=== PATIENT | male | born 1955 | race Caucasian/White ===

== ENCOUNTER 2020-03-26 08:40 | Outpatient (CLI) | payer OTHER, SELFPAY ==
--- NOTE | 2020-03-26 08:47 | USCV_ITS ---
Edmundo Malloy Age: 64 Gender: M : 1955 Exam Date: 03/26/2020 08:55 Ordering Phys: Patricio Stanton DO Technologist: Barron Staton Exam Location: [facility] [place] Indication: MURMUR BP: 130 / 75 HR: 64 Rhythm: Sinus Technical Quality: Good MEASUREMENTS (Male / Female) Normal Values 2D ECHO LV Diastolic Diameter PLAX 4.2 cm 4.2 - 5.9 / 3.9 - 5.3 cm LV Systolic Diameter PLAX 3.5 cm IVS Diastolic Thickness 1.8 cm 0.6 - 1.0 / 0.6 - 0.9 cm IVS Systolic Thickness 2.4 cm LVPW Diastolic Thickness 1.7 cm 0.6 - 1.0 / 0.6 - 0.9 cm LVPW Systolic Thickness 1.4 cm LVOT Diameter 2.4 cm LV Ejection Fraction 2D Teich 33.1 % LV Ejection Fraction MOD 2C 68.9 % LV Ejection Fraction 2C AL 69.8 % LA Diameter 5.8 cm LA Width 4.2 cm LA Height 4.5 cm RA Width 4.5 cm RA Height 4.7 cm M-MODE LV Diastolic Diameter MM 5.3 cm 4.2 - 5.9 / 3.9 - 5.3 cm LV Systolic Diameter MM 3.7 cm LV Ejection Fraction MM Teich 57.5 % IVS Diastolic Thickness MM 1.8 cm 0.6 - 1.0 / 0.6 - 0.9 cm IVS Systolic Thickness MM 1.8 cm LVPW Diastolic Thickness MM 1.4 cm 0.6 - 1.0 / 0.6 - 0.9 cm LVPW Systolic Thickness MM 1.9 cm RV Diastolic Diameter MM 2.3 cm Aortic Annulus Diameter 4.3 cm LA Ao Ratio MM 1.3 MV E Point Septal Separation 0.9 cm DOPPLER AV Peak Velocity 161.0 cm/s LVOT Peak Velocity 132.0 cm/s AV Area Cont Eq vti 3.2 cm squared AV Area Cont Eq pk 3.7 cm squared MV Area PHT 2.9 cm squared Mitral E to A Ratio 0.6 MV E' Velocity 62.0 cm/s TR Peak Velocity 252.0 cm/s TR Peak Gradient 25.4 mmHg Right Atrial Pressure 3.0 mmHg Pulmonary Artery Systolic Pressu 28.4 mmHg FINDINGS Left Ventricle Normal left ventricular cavity size. Increased left ventricular wall thickness. Mild concentric left ventricular hypertrophy. Normal left ventricular systolic function. Left ventricular ejection fraction is estimated at 70 %. No regional wall motion abnormalities. Grade I diastolic dysfunction (abnormal relaxation filling pattern). Right Ventricle Normal right ventricular size and systolic function. Right ventricular systolic pressure 28.4 mmHg. Right Atrium Right atrium not well visualized. Right atrial pressure estimated at 3 mmHg. Left Atrium Moderately increased left atrial size. Mitral Valve Mild mitral annular calcification. No mitral valve stenosis. Trace to mild mitral valve regurgitation. Aortic Valve Mildly thickened trileaflet aortic valve. No aortic valve stenosis. Mild aortic valve regurgitation. Tricuspid Valve Structurally normal tricuspid valve. Trace to mild tricuspid valve regurgitation. Pulmonic Valve Structurally normal pulmonic valve. No pulmonary valve stenosis. Trace pulmonary valve regurgitation. Pericardium No pericardial effusion. Aorta Moderately dilated ascending aorta measured at 43 mm . CONCLUSIONS 1. Normal left ventricular cavity size. Mild concentric left ventricular hypertrophy. Normal left ventricular systolic function. Left ventricular ejection fraction is estimated at 70 %. No regional wall motion abnormalities. Grade I diastolic dysfunction (abnormal relaxation filling pattern). 2. Normal right ventricular size and systolic function. 3. Moderately increased left atrial size. 4. Pulmonary artery pressure estimated at 28 mmHg. 5. Mild aortic valve regurgitation. 6. Moderately dilated ascending aorta measured at 43 mm . 7. No prior similar studies to compare. Deya Babb MD (Electronically Signed) Final Date: 26 Mar 2020 16:09 S
--- NOTE | 2020-03-26 08:49 | USCV_ITS ---
Edmundo Malloy Age: 64 Gender: M : 1955 Exam Date: 03/26/2020 09:12 Ordering Phys: Patricio Stanton DO Technologist: Barron Staton [place] [facility] [place]: SCREENING HISTORY: Diameter (cm) AP x Transverse x Length Velocity (cm/s) Waveform Prox Aorta: 3.09 x 3.08 x 41.40 Triphasic Mid Aorta: 2.03 x 2.68 x 38.10 Triphasic Distal Aorta: 1.56 x 2.39 x 39.70 Triphasic Right Iliac Prox: 1.49 x 1.93 x 37.10 Left Iliac Prox: 1.45 x 2.43 x 31.70 Triphasic Stent Prox Landing x x Aneurysmal Sac Max x x Lt Lat Sac Dim Rt Lat Sac Dim Stent Dist Landing x x Right Iliac Stent x x Left Iliac Stent x x Right Renal Art Left Renal Art FINDINGS: CONCLUSIONS Moderate arteriovascular disease within the abdominal aorta. No evidence of abdominal aortic or bilateral iliac aneurysm. Natanael Dawson MD (Electronically Signed) Final Date: 26 Mar 2020 13:36 S
== END 2020-03-26 08:41 | disposition home or self-care (01) ==
LOC: RAD 08:42
PROVIDERS: PCP Emergency Medicine Emergency Medical Services; Visit Provider Emergency Medicine Emergency Medical Services
DX: Z13.89 Encounter for screening for other disorder (principal); R01.1 Cardiac murmur, unspecified; I51.7 Cardiomegaly; I35.1 Nonrheumatic aortic (valve) insufficiency
CPT/HCPCS: 76706; 93306

== ENCOUNTER 2021-01-21 06:49 | Outpatient (CLI) | payer OTHER, SELFPAY ==
--- NOTE | 2021-01-21 | USCV_ITS ---
dEmundo Malloy Age: 65 Gender: M : 1955 Exam Date: 01/21/2021 07:50 Ordering Phys: Patricio Stanton DO Technologist: Barron Staton [place] [facility] [place]: ? ENLARGED HEART BP: 146 / 93 HR: 53 Rhythm: Sinus Technical Quality: Fair MEASUREMENTS (Male / Female) Normal Values 2D ECHO LV Diastolic Diameter PLAX 3.7 cm 4.2 - 5.9 / 3.9 - 5.3 cm LV Systolic Diameter PLAX 3.2 cm IVS Diastolic Thickness 1.6 cm 0.6 - 1.0 / 0.6 - 0.9 cm IVS Systolic Thickness 1.5 cm LVPW Diastolic Thickness 1.7 cm 0.6 - 1.0 / 0.6 - 0.9 cm LVPW Systolic Thickness 1.7 cm LVOT Diameter 2.0 cm LV Ejection Fraction 2D Teich 10.8 % LA Diameter 4.9 cm LA Width 4.3 cm LA Height 6.5 cm RA Width 4.6 cm RA Height 5.6 cm Aorta at Sinotubular Diameter 4.2 cm M-MODE LV Diastolic Diameter MM 4.7 cm 4.2 - 5.9 / 3.9 - 5.3 cm LV Systolic Diameter MM 2.9 cm LV Ejection Fraction MM Teich 67.8 % IVS Diastolic Thickness MM 2.1 cm 0.6 - 1.0 / 0.6 - 0.9 cm IVS Systolic Thickness MM 2.1 cm LVPW Diastolic Thickness MM 1.4 cm 0.6 - 1.0 / 0.6 - 0.9 cm LVPW Systolic Thickness MM 1.9 cm RV Diastolic Diameter MM 3.0 cm Aortic Annulus Diameter 3.7 cm LA Ao Ratio MM 1.4 MV E Point Septal Separation 0.9 cm DOPPLER AV Peak Velocity 183.0 cm/s LVOT Peak Velocity 117.0 cm/s AV Area Cont Eq vti 2.8 cm squared AV Area Cont Eq pk 2.0 cm squared MV Area PHT 5.4 cm squared Mitral E to A Ratio 2.0 MV E' Velocity 55.5 cm/s Mitral E to MV E' Ratio 16.8 Mitral E to LV E' Lateral Ratio 14.3 Mitral E to LV E' Septal Ratio 20.4 TR Peak Velocity 274.3 cm/s TR Peak Gradient 30.1 mmHg TV Peak E Velocity 100.0 cm/s Right Atrial Pressure 3.0 mmHg Pulmonary Artery Systolic Pressu 33.1 mmHg FINDINGS Left Ventricle Normal left ventricular size and systolic function, EF 65% . Mild left ventricular hypertrophy. No regional wall motion abnormalities. Grade I/IV diastolic dysfunction (abnormal relaxation filling pattern), normal to mildly elevated filling pressures. Right Ventricle Normal right ventricular size and systolic function. Right Atrium Normal right atrial size. Left Atrium Mildly increased left atrial size. Mitral Valve Thickened mitral valve. Mild mitral annular calcification. Aortic Valve Thickened aortic valve. Tricuspid Valve Trace to mild tricuspid valve regurgitation. Pulmonic Valve Pulmonic valve not well visualized. Pericardium Normal pericardium without effusion. Aorta Normal ascending aorta dimension. CONCLUSIONS Normal left ventricular size and systolic function, EF 65% . Mild left ventricular hypertrophy. No regional wall motion abnormalities. Grade I/IV diastolic dysfunction (abnormal relaxation filling pattern), normal to mildly elevated filling pressures. Mildly increased left atrial size. Thickened mitral valve. Mild mitral annular calcification. Thickened aortic valve. Trace to mild tricuspid valve regurgitation. Severe pulmonary artery peak systolic pressure of 33 mmHg There is no pericardial effusion. There are no intracardiac masses. Compared to the previous study from 03/26/2020, there may not be a significant change Dr Rosenda Osei MD [facility] (Electronically Signed) Final Date: 21 January 2021 19:28 S
--- NOTE | 2021-01-21 07:03 | USCV_ITS ---
Edmundo Malloy Age: 65 Gender: M : 1955 Exam Date: 01/21/2021 07:31 Ordering Phys: Patricio Stanton DO Technologist: Barron Staton Exam Location: [facility] [place] Indication: ? AAA HISTORY: Diameter (cm) AP x Transverse x Length Velocity (cm/s) Waveform Prox Aorta: 2.77 x 2.72 x 87.20 Triphasic Mid Aorta: 3.01 x 2.18 x 73.80 Triphasic Distal Aorta: 1.35 x 1.39 x 81.00 Triphasic Right Iliac Prox: 1.03 x 1.24 x 145.90 Triphasic Left Iliac Prox: 1.34 x 1.26 x 161.20 Triphasic Stent Prox Landing x x Aneurysmal Sac Max x x Lt Lat Sac Dim Rt Lat Sac Dim Stent Dist Landing x x Right Iliac Stent x x Left Iliac Stent x x Right Renal Art Left Renal Art FINDINGS: Normal abdominal aortic dimensions. Diffuse plaques in the aorta. Normal Doppler flow velocities. CONCLUSIONS Mild diffuse plaques in the abdominal aorta with no evidence of any significant aneurysm Normal proximal common iliac artery dimensions No significant stenosis, based on the flow velocity measurements Dr Rosenda Osei MD [facility] (Electronically Signed) Final Date: 22 January 2021 22:28 S
== END 2021-01-21 06:50 | disposition home or self-care (01) ==
LOC: US 06:49
PROVIDERS: PCP Emergency Medicine Emergency Medical Services; Visit Provider Emergency Medicine Emergency Medical Services
DX: Z13.6 Encounter for screening for cardiovascular disorders (principal); I70.0 Atherosclerosis of aorta; I08.3 Combined rheumatic disorders of mitral, aortic and tricuspid valves
CPT/HCPCS: 76706; 93306

== ENCOUNTER 2021-05-22 14:10 | Emergency (ER) | payer OTHER, MEDICARE, SELFPAY ==
[2021-05-22 14:30] VITALS: BP 135/83; PULSE 70; RESP 18; TEMP 36.6; O2SAT 94; BMI 30.7
[2021-05-22 15:30] LABS: Basophils # 0.1 10^3/uL (0.0-0.1); Eosinophils # 0.1 10^3/uL (0.0-0.8); Hematocrit 46.2 % (42.0-52.0); Hemoglobin 15.7 g/dL (11.7-16.6); Lymphocytes # 1.9 10^3/uL (0.8-4.8); Lymphocytes % 25.6 %; Mean Corpuscular Volume 91.3 fL (80-94); Mean Platelet Volume 10.3 fL (7.4-10.4); Monocytes # 0.6 10^3/uL (0.2-0.9); Monocytes % 8.7 %; Neutrophils # 4.64 10^3/uL (1.8-7.7); Neutrophils % 63.3 %; Nucleated Red Blood Cells % 0 %; Platelet Count 260 10^3/cmm (130-400); Red Blood Count 5.06 10^6/uL (4.1-5.3); Red Cell Distribution Width 13.2 % (12.1-15.1); White Blood Count 7.3 10^3/uL (4.0-10.0)
[2021-05-22 15:49] LABS: Alanine Aminotransferase 55 U/L (0-41); Albumin Level 4.3 g/dL (3.5-5.2); Alkaline Phosphatase 68 IU/L (40-130); Anion Gap 15.5 (5-19); Aspartate Amino Transferase 33 U/L (0-40); Blood Urea Nitrogen 16 mg/dL (8-23); Calcium 9.5 mg/dL (8.5-10.5); Carbon Dioxide 26 mmol/L (22-29); Chloride 100 mmol/L (98-107); Globulin 3.3 g/dL (1.3-4.6); Glomerular Filtration Rate 112.5 mL/min (90-130); Glucose 118 mg/dL (65-115); Osmolality Calculated 288 mOsm/kg (285-295); Potassium 3.5 mmol/L (3.5-5.1); Sodium 138 mmol/L (136-145); Total Bilirubin 0.6 mg/dL (0.15-1.2); Total Protein 7.6 g/dL (6.6-8.7)
[2021-05-22] MEDS: acyclovir 1,000 MG in sodium chloride 0.9% (100 ml) 100 ML 120 MG IV (15:54)
[2021-05-22 16:37] VITALS: BP 154/74; PULSE 67; RESP 18; O2SAT 96
[2021-05-22 17:30] VITALS: BP 156/76; PULSE 74; RESP 18; O2SAT 97
--- NOTE | 2021-05-22 17:30 | W.ED.WOUNDLC ---
HPI - Wound/Laceration General: Chief Complaint: Wound/Laceration Stated Complaint: Pain in R eye, Headache Time Seen by Provider: 05/22/21 14:49 History of Present Illness: HPI narrative: The patient is a 65-year-old male who comes to the ER complaining of rash on his right forehead and right eye pain for the past 4 to 5 days. He said it started with a quarter sized lesion on his right forehead at the hairline which is slightly larger than a quarter in size which is tender. The next day he started to have mild aching pain in his eye. He also developed some spots on his forehead and he does have a little tenderness on that side of his nose as well the right side. He complains over the past couple of days mild blurry vision to the right side. No significant change in his vision though he is able to read all of the letters and words on my ID at approximately 3 feet away. With the other eye covered. On the H test he follows well in all areas. Likely herpes zoster with some ophthalmic involvement. Review of Systems General: Reports: 10 or more systems reviewed and unremarkable except in HPI and below Const: Denies: fatigue Eyes: Reports: blurry vision and other (Mild conjunctivitis on the right side); Denies: change in vision or eye redness ENMT: Denies: throat pain, swelling of lips/tongue, ear or mastoid pain or nasal congestion Card: Denies: chest pain, palpitations, irregular heart rhythm, edema, dyspnea on exertion or orthopnea Resp: Denies: dyspnea, productive cough or non-productive cough GI: Denies: abdominal pain, diarrhea or GI cramping : Denies: flank pain, urinary frequency or urinary urgency Musc: Denies: neck pain, back pain, extremity pain, joint pain, joint redness, limited range of motion or muscle weakness Skin/Breast: Reports: rash and erythema; Denies: pruritus, skin pain or skin tenderness Neuro: Denies: headache(s), numbness in extremities, weakness in extremities, sensory changes, difficulty walking, dizziness, confusion or Slurred speech present Psych: Denies: anxiety or depression Endo: Denies: polyuria All/Imm: Denies: urticaria, throat swelling or tongue swelling Physical Exam Narrative: EXAM NARRATIVE: Shingles rash to the right forehead with quarter sized lesion at the hairline. Also extends to the ophthalmic region with mild conjunctivitis. He complains of blurry vision. He is able to read most fine print with left eye covered. He reads my ID badge well from 3 feet away which is fine print on it. H test there are no deficits in his eye movement. Const: COMMON NORMALS: no acute distress, average body habitus, patient oriented x3, no limitations, healthy appearing, alert and well nourished GENERAL APPEARANCE: cooperative, comfortable, well kempt and well developed ORIENTATION/CONSCIOUSNESS: Yes awake, Yes oriented to person, Yes oriented to place and Yes oriented to time HENMT: COMMON NORMALS: normocephalic, external ears normal and Normal external nose present HEAD & SCALP: normal to inspection and normocephalic FACE & SINUS IMAGES: 1. Quarter size herpetic rash. Tender. NOSE: Normal external nose present EXTERNAL EAR: Yes external ears normal MOUTH: Normal oral and palatal mucosa present THROAT: posterior oropharynx normal Eye: COMMON NORMALS: Equal, round and reactive pupils present GENERAL EYE: normal light reflex ALIGNMENT: Yes alignment normal EYELID: eyelids normal PUPIL: Yes Equal, round and reactive pupils present EOM: No movement deficit DIRECT OPHTHALMOSCOPY: Yes normal light reflex OTHER: H test has no deficits. He has complete movement in all directions of his eyes. Pupils equally reactive to light EYE IMAGES: 1. Mild conjunctivitis to lower half of the sclera. No cloudiness to the cornea. Neck/C-Spine: COMMON NORMALS: full ROM, no lymphadenopathy, no meningeal signs and no JVD GENERAL: Yes normal visual inspection Lymph: LYMPHATIC: no lymphadenopathy noted Chest: COMMONS NORMALS: normal inspection of the chest and normal palpation of entire chest wall Resp: COMMON NORMALS: normal respiratory effort, No retractions, No use of accessory muscles, clear to auscultation bilaterally and percussion normal EFFORT & INSPECTION: Yes able to speak in complete sentences AUSCULTATION: clear to auscultation bilaterally PERCUSSION: percussion normal Cardio: COMMON NORMALS: no JVD, regular rate, regular rhythm, S1 normal heart sound present, S2 normal heart sound present and Peripheral pulses 2+ throughout RATE: regular rate RHYTHM: regular rhythm HEART SOUNDS: S1 normal heart sound present and S2 normal heart sound present PERIPHERAL PULSES: Peripheral pulses 2+ throughout GI: COMMON NORMALS: Normal to inspection, nondistended, normoactive bowel sounds present, Soft to palpation, non-tender and no masses INSPECTION: Yes normal to inspection PALPATION: Yes Soft to palpation : COMMON NORMALS: Yes no CVA tenderness BLADDER/KIDNEY EXAM: Yes no CVA tenderness Back/Pelvis: COMMON NORMALS: no CVA tenderness, thoracic and lumbar spine normal to inspection, no thoracic nor lumbar tenderness and thoraco-lumbar ROM normal Extremity: COMMON NORMALS: normal to inspection, full ROM, capillary refill normal, no joint enlargement and no pedal edema GENERAL: Yes normal exam except as noted Neuro: COMMON NORMALS: patient oriented x3, CN's II-XII intact bilaterally, moves all extremities, no focal motor deficits, no sensory deficits noted and gait normal SENSORIUM/ORIENTATION: Yes alert, Yes oriented to person, Yes oriented to place and Yes oriented to time MENINGEAL SIGNS: Yes no meningeal signs Psych: COMMON NORMALS: mental status grossly normal, Normal thought process present, cooperative, normal affect and speech normal APPEARANCE: Yes well kempt ATTITUDE: Yes calm SPEECH: Yes normal speech THOUGHT PROCESS: Normal thought process present Skin: COMMON NORMALS: no rashes or lesions noted GENERAL SKIN EXAM: no rashes or lesions noted Course Vital Signs: Vital signs: Vital Signs Temperature 98 F 05/22/21 14:30 Pulse Rate 74 05/22/21 17:30 Respiratory Rate 18 05/22/21 17:30 Blood Pressure 156/76 05/22/21 17:30 Pulse Oximetry 97 05/22/21 17:30 MDM - Wound/Laceration MDM Narrative: Medical decision making narrative: Discussed with [facility] components engineer Dr. Francisco Juarez who recommended outpatient follow-up in his clinic Monday. I gave the patient the address and phone number. He recommended calling the morning of and following up that afternoon. The patient is amenable to this plan. I offered him transfer to a facility with an components engineer and he preferred outpatient therapy of this. He does have mild blurry vision and conjunctivitis on the lower half of his sclera on the right eye. H test is intact. Light reflex intact. He will return to the ER with any worsening symptoms of his vision. He is discharged with Valtrex as well and will pick that up. He will call the ER for acyclovir prescription if it is not covered. Lab Data: Labs: Lab Results 07/17/21 07/17/21 Range/Units 11:23 11:23 WBC 7.3 (4.0-10.0) 10^3/ uL RBC 5.06 (4.1-5.3) 10^6/u L Hgb 15.7 (11.7-16.6) g/dL Hct 46.2 (42.0-52.0) % MCV 91.3 (80-94) fL MCH 31.0 (28.0-34.0) pg MCHC 34.0 (30.0-36.0) g/dL RDW 13.2 (12.1-15.1) % Plt Count 260 (130-400) 10^3/c mm MPV 10.3 (7.4-10.4) fL Neut % (Auto) 63.3 % Lymph % (Auto) 25.6 % Grimes % (Auto) 8.7 % Eos % (Auto) 1.0 % Baso % (Auto) 1.0 % Neut # (Auto) 4.64 (1.8-7.7) 10^3/u L Lymph # (Auto) 1.9 (0.8-4.8) 10^3/u L Grimes # (Auto) 0.6 (0.2-0.9) 10^3/u L Eos # (Auto) 0.1 (0.0-0.8) 10^3/u L Baso # (Auto) 0.1 (0.0-0.1) 10^3/u L Nucleated RBC % (a uto) 0 % Nucleated RBCs # 0.0 /100WBC Sodium 138 (136-145) mmol/L Potassium 3.5 (3.5-5.1) mmol/L Chloride 100 (98-107) mmol/L Carbon Dioxide 26 (22-29) mmol/L Anion Gap 15.5 (5-19) BUN 16 (8-23) mg/dL Creatinine 0.7 (0.7-1.2) mg/dL GFR Calculation 112.5 (90-130) mL/min Glucose 118 H (65-115) mg/dL Calculated Osmolal ity 288 (285-295) mOsm/k g Calcium 9.5 (8.5-10.5) mg/dL Total Bilirubin 0.6 (0.15-1.2) mg/dL AST 33 (0-40) U/L ALT 55 H (0-41) U/L Alkaline Phosphata se 68 (40-130) IU/L Total Protein 7.6 (6.6-8.7) g/dL Albumin 4.3 (3.5-5.2) g/dL Globulin 3.3 (1.3-4.6) g/dL Discharge Plan Discharge Patient Disposition: Home Clinical Impression: Herpes zoster ophthalmicus Condition: Stable Prescriptions: New Valtrex 1 gram tablet 1,000 mg PO Q8H 7 Days Qty: 21 RF: 0 hydrocodone-acetaminophen 5-325 mg tablet 1 tab PO Q6H PRN (Reason: pain) Qty: 12 RF: 0 erythromycin 5 mg/gram (0.5 %) ointment 1 applic ophthalmic (eye) BID 5 Days Qty: 1 RF: 0 Discharge Orders: Discharge ED (Routine); Ordered 05/22/21 Ordered By: Darrell Zhang Referrals: Patricio Stanton, DO [Primary Care Provider] - Discharge Diet: Advance as tolerated Discharge Activity: Resume usual activity Patient Instructions: Herpes Zoster (ED), Opioid Safety Activity Restrictions/Additional Instructions: You likely have shingles to your forehead and right eye. You have some blurry vision in the right eye but no significant weakness with movement of your eyes and the vision is mostly intact you are able to read and some small print with that eye. I have discussed with Dr. Francisco Juarez who is an components engineer. He recommended Valtrex 1 g 3 times daily and to follow-up in his [facility] [place] [facility] Monday around lunchtime. The phone number is [phone]. The location is [address] [place] [address]. Please return to the ER at anytime with worsening vision, inability to move your eye, worsening pain, or any other worrisome symptoms. Coding Level of Care Code ED Census Enumerator for Ana Rosa Gifford
== END 2021-05-22 17:54 | disposition home or self-care (01) ==
PROVIDERS: Emergency Provider Family Medicine; PCP Emergency Medicine Emergency Medical Services
DX: B02.30 Zoster ocular disease, unspecified (principal)
CPT/HCPCS: 80053; 85025; 96365; 99283; J0133

== ENCOUNTER 2021-11-22 07:57 | Outpatient (CLI) | payer OTHER, SELFPAY ==
--- NOTE | 2021-11-22 08:05 | USCV_ITS ---
Gama Edmundo Age: 66 Gender: M : 1955 Exam Date: 11/22/2021 08:13 Ordering Phys: Patricio Stanton DO Technologist: CHELSEY [place] [facility] [place]ication: THORACIC ROOT DILITATION BP: 132 / 80 HR: 73 Rhythm: Sinus Technical Quality: Adequate MEASUREMENTS (Male / Female) Normal Values 2D ECHO LV Diastolic Diameter PLAX 3.3 cm 4.2 - 5.9 / 3.9 - 5.3 cm LV Systolic Diameter PLAX 2.1 cm IVS Diastolic Thickness 1.4 cm 0.6 - 1.0 / 0.6 - 0.9 cm IVS Systolic Thickness 2.4 cm LVPW Diastolic Thickness 2.1 cm 0.6 - 1.0 / 0.6 - 0.9 cm LVPW Systolic Thickness 2.4 cm RV Chamber Size 3.6 cm LVOT Diameter 2.0 cm LV Ejection Fraction 2D Teich 66.3 % LV Ejection Fraction MOD 2C 45.3 % LV Ejection Fraction 2C AL 48.4 % LA Diameter 4.4 cm LA Width 3.6 cm LA Height 4.0 cm RA Width 3.6 cm RA Height 5.0 cm Aorta at Sinotubular Diameter 3.6 cm M-MODE Aortic Annulus Diameter 3.9 cm LA Ao Ratio MM 1.1 DOPPLER AV Peak Velocity 143.0 cm/s LVOT Peak Velocity 145.0 cm/s AV Area Cont Eq vti 3.3 cm squared AV Area Cont Eq pk 3.2 cm squared MV Area PHT 2.2 cm squared Mitral E to A Ratio 0.5 MV E' Velocity 25.5 cm/s Mitral E to MV E' Ratio 10.6 Mitral E to LV E' Lateral Ratio 9.7 Mitral E to LV E' Septal Ratio 11.6 TR Peak Velocity 299.7 cm/s TR Peak Gradient 35.9 mmHg TV Peak E Velocity 51.0 cm/s Right Atrial Pressure 8.0 mmHg Pulmonary Artery Systolic Pressu 43.9 mmHg PV Peak Velocity 72.0 cm/s RV Acceleration Time 0.1 s RV Ejection Time 0.3 s RV AcT/ET 0.4 FINDINGS Left Ventricle Normal left ventricular size and systolic function, EF 60 %. Moderate left ventricular hypertrophy. Grade I/IV diastolic dysfunction (abnormal relaxation filling pattern), normal to mildly elevated filling pressures. Right Ventricle The right ventricle is normal in size and function. Right Atrium The right atrium is normal in size. Left Atrium The left atrium is normal in size. Mitral Valve Moderate mitral annular calcification. Trace mitral valve regurgitation. Aortic Valve Thickened aortic valve. Trace to mild aortic valve regurgitation. Tricuspid Valve [id number] tricuspid valve regurgitation. Pulmonic Valve Structurally normal pulmonic valve without significant stenosis. There is no pulmonic regurgitation. Pericardium Normal pericardium without effusion. Aorta The aorta at the level of the sinuses measuring 4.4 cm CONCLUSIONS Normal left ventricular size and systolic function, EF 60 %. Moderate left ventricular hypertrophy. Grade I/IV diastolic dysfunction (abnormal relaxation filling pattern), normal to mildly elevated filling pressures. Dilated aortic root, measuring 4.4 cm at the level of the sinuses. Ascending aorta measured 4.7 cm [id number] tricuspid valve regurgitation. Moderate mitral annular calcification. Trace mitral valve regurgitation. Thickened aortic valve. Trace to mild aortic valve regurgitation. Estimated pulmonary artery peak systolic pressure 44 mmHg Consider CTA of the chest to better evaluate the aorta, if clinically indicated, in view of the technical limitations of the current study Dr Rosenda Osei MD [facility] (Electronically Signed) Final Date: 22 November 2021 13:56 S
== END 2021-11-22 07:58 | disposition home or self-care (01) ==
LOC: RAD 07:59
PROVIDERS: PCP Emergency Medicine Emergency Medical Services; Visit Provider Emergency Medicine Emergency Medical Services
DX: Z01.89 Encounter for other specified special examinations (principal); I08.3 Combined rheumatic disorders of mitral, aortic and tricuspid valves
CPT/HCPCS: 93306

== ENCOUNTER 2022-02-02 12:40 | Outpatient (CLI) | payer OTHER, SELFPAY ==
--- NOTE | 2022-02-02 13:00 | CT_ITS ---
WS: [id number] CTA THORACIC AORTA WITH AND WITHOUT CONTRAST. HISTORY: I71.2 - Thoracic aortic aneurysm, without rupture TECHNIQUE: CT imaging of the thorax is performed with and without contrast. After noncontrast imaging is performed, CT angiogram is performed during injection of Omnipaque 350; 95 mL IV.. Sagittal and c oronal reconstructions, sagittal and coronal MIP imaging is submitted. All CT scans at [facility] use at least one of these dose optimization techniques: automated exposure control; mA and/or kV adjustment per patient size (includes targeted exams where dose is matched to clinical indication); or iterative reconstruction. DLP: 1252.70 mGy.cm COMPARISON: None available. Maximum diameter of ascending aorta is 4.7 cm. Aneurysmal dilatation returns to normal caliber throug h the arch. Descending aorta measures 3.8 cm. There is a small amount of plaque and intimal thickenin g. Greatest amount of plaque in the descending aorta. No ulceration or dissection identified. Origin of the celiac axis and SMA are unremarkable. Very small amount of plaque but no stenosis. There is a small amount of plaque at the origin of the great vessels but no high-grade stenosis. Small amount of soft plaque in the origin LEFT subclavian artery. Pulmonary artery is 3.1 cm. The RIGHT pulmonary artery is diameter greater than the LEFT. No mediasti nal or hilar adenopathy. Heart is normal size. There are scattered calcifications which are moderate in the LEFT anterior descending coronary artery. Lungs are clear. No pulmonary mass, nodule or pneumo miley. Moderate hepatic steatosis. Cholelithiasis without acute cholecystitis. No adrenal mass. Nonobstructi ng calcification 5 mm upper pole RIGHT kidney. Mild disc space narrowing and osteophytosis throughout the thoracic spine. Thyroid gland is enlarged and heterogeneous extending substernal. There are nodules in the calcificat ions within each thyroid lobe. CT/CT angio chest [id number] IMPRESSION: 1. Mild aneurysmal dilatation ascending thoracic aorta. Maximum diameter 4.7 c m. 2. Mild dilatation of the pulmonary artery. 3. Moderate atherosclerotic plaque anterior descending coronary artery. 4. Cholelithiasis without acute cholecystitis. 5. Hepatic steatosis. 6. Enlarged heterogeneous nodular thyroid extends substernal. Most likely mult inodular goiter. If the thyroid has not been evaluated by ultrasound this shoul d be performed to evaluate for concerning mass.
[2022-02-02] MEDS: iohexol 350 mg/mL 100 mL Btl IV (13:38)
[2022-02-02 13:47] LABS: Blood Urea Nitrogen 17 mg/dL (8-23); Glomerular Filtration Rate 74.3 mL/min (90-130)
== END 2022-02-02 12:41 | disposition home or self-care (01) ==
LOC: RAD 12:42
PROVIDERS: PCP Emergency Medicine Emergency Medical Services; Visit Provider Thoracic Surgery (Cardiothoracic Vascular Surgery)
DX: I71.2 Thoracic aortic aneurysm, without rupture (principal); K80.20 Calculus of gallbladder without cholecystitis without obstruction; I27.0 Primary pulmonary hypertension; E04.2 Nontoxic multinodular goiter; K76.0 Fatty (change of) liver, not elsewhere classified
CPT/HCPCS: 71275; 82565; 84520

== ENCOUNTER → 2022-02-24 08:45 | Outpatient (BNVA) | payer OTHER, SELFPAY | PROVIDERS: PCP Emergency Medicine Emergency Medical Services; Visit Provider Thoracic Surgery (Cardiothoracic Vascular Surgery) | DX: I71.2 Thoracic aortic aneurysm, without rupture (principal); Z87.891 Personal history of nicotine dependence | CPT/HCPCS: 99213 ==

== ENCOUNTER 2023-01-12 08:49 | Outpatient (CLI) | payer OTHER, SELFPAY ==
[2023-01-12] MEDS: iohexol 350 mg/mL 500 mL Btl (per mL) IV (09:11)
--- NOTE | 2023-01-12 09:30 | CT_ITS ---
WS: [id number] CTA THORACIC TECHNIQUE: Contrast enhanced CTA of the thoracic aorta with coronal and sagittal reformatted images a nd maximum intensity projection (MIP) images. CLINICAL INFORMATION: Thoracic aortic aneurysm COMPARISON: CTA February 02, 2022 DLP: 1199.[address] scans at [facility] use at least one of these dose optimization techniques: automated e xposure control; mA and/or kV adjustment per patient size (includes targeted exams where dose is matc hed to clinical indication); or iterative reconstruction. FINDINGS: Thoracic aortic aneurysm measuring measures 4.9 cm in maximum dimension. This is unchanged in appeara nce compared to February 02, 2022. No significant progression. Normal caliber aortic arch and descending thoracic aorta. Mild aortic calcification. Proximal main pulmonary arteries are normal. Multinodular goiter. Calcified thyroid nodules. No mediastinal or hilar lymphadenopathy. No axillary lymphadenopathy. Cholelithiasis. Adrenal glands are normal. Normal GE junction. Fatty atrophy of the pancreas. Both lungs are well aerated. No acute pulmonary infiltrates. No focal pneumonia or pleural fluid. CT/CT angio chest [id number] IMPRESSION: 1. Stable ascending thoracic aortic aneurysm measuring 4.9 cm in maximum dimen brock. This is not significantly changed compared to previous. 2. Proximal main pulmonary arteries are normal and slightly prominent unchange d from previous. 3. Lungs are well aerated. 4. Cholelithiasis. 5. Stable multinodular goiter.
[2023-01-12 09:36] LABS: Blood Urea Nitrogen 17 mg/dL (8-23); Glomerular Filtration Rate 74.1 mL/min (90-130)
== END 2023-01-12 08:50 | disposition home or self-care (01) ==
LOC: RAD 08:52
PROVIDERS: PCP Emergency Medicine Emergency Medical Services; Visit Provider Thoracic Surgery (Cardiothoracic Vascular Surgery)
DX: I71.20 Thoracic aortic aneurysm, without rupture, unspecified (principal); E04.2 Nontoxic multinodular goiter; K80.20 Calculus of gallbladder without cholecystitis without obstruction
CPT/HCPCS: 71275; 82565; 84520; Q9967

== ENCOUNTER → 2023-02-16 13:21 | Outpatient (BNVA) | payer OTHER, SELFPAY | PROVIDERS: PCP Emergency Medicine Emergency Medical Services; Visit Provider Thoracic Surgery (Cardiothoracic Vascular Surgery) | DX: I71.21 Aneurysm of the ascending aorta, without rupture (principal) | CPT/HCPCS: 99213 ==

== ENCOUNTER 2023-06-11 09:42 | Emergency (ER) | payer OTHER, SELFPAY ==
[2023-06-11 09:46] VITALS: BP 153/94; PULSE 79; RESP 18; TEMP 37; O2SAT 95; BMI 31.5
--- NOTE | 2023-06-11 10:08 | W.ED.EYEPROB ---
HPI - Eye Problem General: Chief complaint: Eye Problems Stated complaint: right eye pain and blurry Time Seen by Provider: 06/11/23 10:07 Source: patient Mode of arrival: ambulatory Limitations: no limitations History of Present Illness: 67 yr old male presents to the ER for R eye redness, itching and swelling x 2 days. Patient reports on Monday he was cleaning some brush and then when he woke up Monday morning noticed swelling to the right eye. This was more of the upper and lower eyelids. Patient reports it was also slightly red and itchy. Denies any drainage. Reports he also has an itchy area on his left side of neck. Patient has a history of shingles and was concerned that maybe this was shingles related. Denies any blisterlike lesions on the forehead or other symptoms. Denies any vision changes other than some blurriness from the swelling of the eyelid and decreased vision from the swelling. Denies any headaches. Denies any increased eye pressure. Patient has not done anything for symptoms at this time. Review of Systems General: Reports: 10 or more systems reviewed and unremarkable except in HPI and below PFSH ED PFSH: Medical History Aortic root dilation Family History Father CAD (coronary artery disease) Denies family history of Diabetes Cancer Hypertension Stroke Social History Smoking and tobacco status: former smoker Quit status (tobacco): has quit using tobacco Year quit tobacco: 2018 Former quit date comment: Smoked 1 pack per day 30 years Alcohol intake: current Alcohol intake frequency: 0-2 Drinks per Day Substance/Drug Use: never Lives independently: Yes Household members: spouse Marital status: Number of children: 2 service: Yes Current occupational status: retired Pets and animals: Yes Pets & animals: cat(s) and dog(s) Physical Exam Const: COMMON NORMALS: no acute distress, average body habitus, patient oriented x3, no limitations, healthy appearing, alert and well nourished HENMT: COMMON NORMALS: normocephalic, atraumatic, external ears normal, Normal nasal mucous membranes and turbinates present and moist oral mucous membranes HEAD & SCALP: normocephalic and atraumatic NOSE: Normal nasal mucous membranes and turbinates present EXTERNAL EAR: Yes external ears normal Eye: COMMON NORMALS: conjunctivae normal GENERAL EYE: normal light reflex VISUAL SILVEIRA: No peripheral vision loss and No central vision loss PERIORBITAL: periorbital findings abnormal positive right periorbital swelling (upper and lower lids, non tendern, minimal erythema) EYELID: eyelid abnormality right upper eyelid swelling; without erythema, without foreign bodies and nontender and right lower eyelid swelling; without erythema and nontender CONJUNCTIVA: Yes conjunctivae normal DIRECT OPHTHALMOSCOPY: Yes normal light reflex Neck/C-Spine: COMMON NORMALS: full ROM and no lymphadenopathy Resp: COMMON NORMALS: normal respiratory effort EFFORT & INSPECTION: Yes able to speak in complete sentences Cardio: COMMON NORMALS: regular rate and regular rhythm RATE: regular rate RHYTHM: regular rhythm Extremity: COMMON NORMALS: normal to inspection, full ROM and no pedal edema Neuro: COMMON NORMALS: patient oriented x3 SENSORIUM/ORIENTATION: Yes alert Psych: COMMON NORMALS: mental status grossly normal, Normal thought process present and cooperative THOUGHT PROCESS: Normal thought process present Skin: NARRATIVE SKIN EXAM: Patient has a quarter sized area to the left side of neck that is slightly erythematous and raised consistent with something like a contact dermatitis. No vesicles, induration, or fluctuance noted. Course ED course: Patient presents for right eyelid swelling for the last 2 days. There is also some itching associated. Denies any eye discharge or redness of the conjunctiva. Denies any pain. Blurry vision secondary to some of the swelling of the eyelids but otherwise vision clear. No recent illness. No fevers. Admits to recent contact with brush while cleaning at home. Patient has not tried anything at this time. Based on physical exam, this appears to be a blepharitis versus contact dermatitis. We will do a Kenalog shot in the ER today. Vital Signs: Vital signs: Vital Signs Temperature 98.6 F 06/11/23 09:46 Pulse Rate 79 06/11/23 09:46 Respiratory Rate 18 06/11/23 09:46 Blood Pressure 153/94 06/11/23 09:46 Pulse Oximetry 95 06/11/23 09:46 Oxygen Delivery Me thod Room Air 06/11/23 09:46 MDM - Eye Problem Medical Decision Making Based on history and physical exam, this appears to be more of a blepharitis versus contact dermatitis or both. We will go ahead and do a Kenalog injection in the ER today. We will send patient home with Gentac drops to use. Also recommended topical hydrocortisone cream for area on the left side of the neck. If symptoms or not improving in 48 hours follow-up with PCP. Also recommended cleaning eye with warm soapy water. For any new or worsening symptoms, return to the ER. Patient verbalized understanding and was in agreement with the treatment plan. Critical Care Time Critical Care Time: Critical Care Time: No Discharge Plan Discharge Patient Disposition: Home Clinical Impression: Blepharitis of eyelid of right eye Qualifiers: Blepharitis type: unspecified type Eyelid: both upper and lower Qualified Code(s): H01.00A - Unspecified blepharitis right eye, upper and lower eyelids Contact dermatitis Qualifiers: Contact dermatitis type: unspecified Contact dermatitis trigger: unspecified trigger Qualified Code(s): L25.9 - Unspecified contact dermatitis, unspecified cause Condition: Stable Prescriptions: New gentamicin 0.3 % drops 2 drp ophthalmic (eye) Q8H 5 Days Qty: 5 0RF No Action lisinopril 40 mg tablet 40 mg PO DAILY amlodipine 10 mg tablet 10 mg PO DAILY allopurinol 300 mg tablet 300 mg PO DAILY cholecalciferol (vitamin D3) 50 mcg (2,000 unit) capsule 50 mcg PO DAILY sildenafil [Viagra] 50 mg tablet 50 mg PO DAILY PRN Rx Instructions: administer 30 minutes to 4 hours before activity hydrocodone-acetaminophen 5-325 mg tablet 1 tab PO Q6H PRN (Reason: pain) Qty: 12 0RF Discharge Orders: Discharge ED (Routine); Ordered 06/11/23 Ordered By: Simona Akhtar Referrals: Patricio Stanton DO [Primary Care Provider] - Discharge Diet: Usual diet Discharge Activity: Resume usual activity Patient Instructions: Opioid Safety, Pain Management Activity Restrictions/Additional Instructions: Use eyedrops as prescribed. Take Benadryl as discussed. Topical hydrocortisone cream recommended for area on neck. Clean eye with baby soap and warm washcloth. If no improvement in 48 hours follow-up with PCP. Return to the ER with new or worsening symptoms. Coding Level of Care Code ED Associate Professor Of Anthropology for Ana Rosa Gifford
[2023-06-11] MEDS: triamcinolone 40 mg/mL SDV 80 MG IM (10:28)
== END 2023-06-11 10:36 | disposition home or self-care (01) ==
PROVIDERS: Emergency Provider Physician Assistant; PCP Emergency Medicine Emergency Medical Services
DX: H01.00A Unspecified blepharitis right eye, upper and lower eyelids (principal); L25.9 Unspecified contact dermatitis, unspecified cause; Z87.891 Personal history of nicotine dependence
CPT/HCPCS: 96372; 99284; J3301

== ENCOUNTER 2023-07-21 06:11 | Outpatient (CLI) | payer OTHER, SELFPAY ==
--- NOTE | 2023-07-21 | USCV_ITS ---
Edmundo Malloy Age: 67 Gender: M : 1955 Exam Date: 07/21/2023 06:32 Ordering Phys: Patricio Stanton DO Technologist: ELIEZER Exam Location: [facility] [place] Indication: EVAL FOR AAA HISTORY: Diameter (cm) AP x Transverse x Length Velocity (cm/s) Waveform Prox Aorta: 2.51 x 2.66 x 63.40 Triphasic Mid Aorta: 2.31 x 2.06 x 74.10 Triphasic Distal Aorta: 2.16 x 2.30 x 65.50 Triphasic Right Iliac Prox: 1.16 x 0.92 x 123.50 Triphasic Left Iliac Prox: 1.28 x 1.15 x 106.30 Triphasic Stent Prox Landing x x Aneurysmal Sac Max x x Lt Lat Sac Dim Rt Lat Sac Dim Stent Dist Landing x x Right Iliac Stent x x Left Iliac Stent x x Right Renal Art Left Renal Art FINDINGS: Comparison:. 01/21/21. No evidence of abdominal aortic or bilateral iliac aneurysm. Atherosclerotic plaque is noted in the abdominal aorta. CONCLUSIONS No evidence of abdominal aortic or bilateral iliac aneurysm. Dr. Digna Mart DO (Electronically Signed) Final Date: 21 July 2023 07:36 S
== END 2023-07-21 06:12 | disposition home or self-care (01) ==
PROVIDERS: PCP Emergency Medicine Emergency Medical Services; Visit Provider Emergency Medicine Emergency Medical Services
DX: Z13.6 Encounter for screening for cardiovascular disorders (principal)
CPT/HCPCS: 93978

== ENCOUNTER 2023-10-06 11:03 | Outpatient (CLI) | payer OTHER, SELFPAY ==
--- NOTE | 2023-10-06 11:07 | USCV_ITS ---
Gama Edmundo Age: 68 Gender: M : 1955 Exam Date: 10/06/2023 11:35 Ordering Phys: Patricio Stanton DO Technologist: [place] [facility] [place] Indication: dilated ao root BP: 140 / 80 HR: 70 Rhythm: Sinus Technical Quality: Adequate MEASUREMENTS (Male / Female) Normal Values 2D ECHO LV Chamber Size 6.7 cm RV Chamber Size 4.2 cm LVOT Diameter 2.2 cm LV Ejection Fraction MOD 2C 57.1 % LV Ejection Fraction 2C AL 57.1 % LA Diameter 5.0 cm LA Width 3.8 cm LA Height 5.1 cm RA Width 3.9 cm RA Height 4.1 cm Aorta at Sinotubular Diameter 4.2 cm M-MODE Aortic Annulus Diameter 4.3 cm LA Ao Ratio MM 1.1 MV E Point Septal Separation 1.2 cm DOPPLER AV Peak Velocity 162.0 cm/s LVOT Peak Velocity 140.0 cm/s AV Area Cont Eq vti 3.2 cm squared AV Area Cont Eq pk 3.2 cm squared MV E' Velocity 12.7 cm/s TR Peak Velocity 232.5 cm/s TR Peak Gradient 21.6 mmHg TV Peak E Velocity 63.0 cm/s Right Atrial Pressure 3.0 mmHg Pulmonary Artery Systolic Pressu 24.6 mmHg PV Peak Velocity 110.0 cm/s FINDINGS Left Ventricle Normal left ventricular size, systolic function and wall thickness, with no regional wall motion abnormalities. Normal left ventricular wall thickness. Grade 1 diastolic dysfunction Right Ventricle The right ventricle is normal in size and function. Right Atrium The right atrium is normal Left Atrium The left atrium is mildly dilated Mitral Valve Structurally normal mitral valve without significant stenosis. T There is mild mitral regurgitation. Aortic Valve Structurally normal aortic valve without significant sclerosis or stenosis. There is mild aortic regurgitation. Tricuspid Valve Structurally normal tricuspid valve without significant stenosis. There is mild regurgitation. Pulmonary artery systolic pressure is normal. Pulmonic Valve Structurally normal pulmonic valve without significant stenosis. There is no pulmonic regurgitation. Pericardium Normal pericardium without effusion. Aorta Normal ascending aorta dimension. IVC The inferior vena cava appears normal. CONCLUSIONS Normal LV function. Mild valvular disease. Mariah Wagner MD (Electronically Signed) Final Date: 06 October 2023 14:29 Amended: 23 October 2023 22:08 C
== END 2023-10-06 11:04 | disposition home or self-care (01) ==
LOC: RAD 11:03
PROVIDERS: PCP Emergency Medicine Emergency Medical Services; Visit Provider Emergency Medicine Emergency Medical Services
DX: I08.3 Combined rheumatic disorders of mitral, aortic and tricuspid valves (principal)
CPT/HCPCS: 93306

== ENCOUNTER → 2024-02-19 12:50 | Outpatient (BNVA) | payer OTHER, SELFPAY | PROVIDERS: PCP Emergency Medicine Emergency Medical Services; Visit Provider Thoracic Surgery (Cardiothoracic Vascular Surgery) | DX: I71.21 Aneurysm of the ascending aorta, without rupture (principal) | CPT/HCPCS: 71046; 99213 ==

== ENCOUNTER 2024-08-15 07:07 | Outpatient (CLI) | payer OTHER, SELFPAY ==
--- NOTE | 2024-08-15 07:13 | CT_ITS ---
WS: [id number] CTA THORACIC AORTA WITH AND WITHOUT CONTRAST HISTORY: ascending aorta aneurysm TECHNIQUE: CTA imaging of the thorax is performed with and without contrast. After noncontrast imagin g is performed, CT angiogram is performed during injection of Omnipaque 350; 100 mL IV.. Sagittal and coronal reconstructions, sagittal and coronal MIP imaging is submitted. All CT scans at [facility] use at least one of these dose optimization techniques: automated exposure control; mA and/or kV adjustment per patient size (includes targeted exams where dose is matched to clinical indication) ; or iterative reconstruction. DLP: 935.44 mGy.cm COMPARISON: 01/12/2023 Good contrast opacification thoracic aorta. Ascending thoracic aorta is dilated with a maximum diamet er of 5.1 cm. Very slight increase in size since the prior study of 4.9 cm. Descending thoracic aorta is normal. Great vessels arise normally from the arch. There is a small amount of calcified and nonc alcified plaque at the origin of the LEFT subclavian artery. RIGHT axillary artery is poorly visualiz ed which is probably due to the contrast injection bolus. No aortic dissection. Aortic valve plane, s inotubular junction and sinus of Valsalva appear appropriate. Small amount of plaque at the origin of the celiac axis. Normal sized main pulmonary artery. The RIGHT and LEFT pulmonary arteries are slightly dilated with t apering. No filling defects. Mild LEFT heart enlargement. No pericardial or pleural effusions. No pul monary mass or nodule. No pneumonia. No mediastinal or hilar adenopathy. Thyroid gland is markedly enlarged and extends substernal with nodules. Similar to prior studies. Cholelithiasis without acute cholecystitis. No adrenal mass. Hepatic steatosis. Thoracic kyphosis. CT/CT angio chest [id number] IMPRESSION: 1. Ascending thoracic aortic aneurysm measures 5.1 cm. Minimal increase in siz e from 4.9 cm on 01/12/2023. 2. 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 3. No aortic dissection. 4. Mild pulmonary hypertension. 5. Cholelithiasis. 6. No pleural effusion. 7. Multinodular goiter.
[2024-08-15 07:49] LABS: Blood Urea Nitrogen 16 mg/dL (8-23); Glomerular Filtration Rate 83.4 mL/min (90-130)
[2024-08-15] MEDS: iohexol 350 mg/mL 500 mL Btl (per mL) IV (07:51)
== END 2024-08-15 07:08 | disposition home or self-care (01) ==
LOC: RAD 07:08
PROVIDERS: Visit Provider Thoracic Surgery (Cardiothoracic Vascular Surgery)
DX: I71.20 Thoracic aortic aneurysm, without rupture, unspecified (principal); E04.2 Nontoxic multinodular goiter; K80.20 Calculus of gallbladder without cholecystitis without obstruction
CPT/HCPCS: 71275; 82565; 84520

== ENCOUNTER 2024-08-26 07:00 | Emergency (ER) | payer OTHER, MEDICARE, SELFPAY ==
[2024-08-26 07:21] VITALS: BP 114/76; PULSE 73; RESP 16; TEMP 36.7; O2SAT 96; BMI 31.5
--- NOTE | 2024-08-26 07:53 | W.ED.MALEGU ---
HPI - Male Genitourinary General: Chief complaint: Urogenital-Male Stated complaint: unable to urinate Time Seen by Provider: 08/26/24 07:01 History of Present Illness: 68-year-old male presents emergency room complaining difficulty urination for the last 6 days. He has noticed scant hematuria difficulty with emptying his bladder at times he feels he can only get a few drops out does not really empty the bladder. He has been increasing his fluid intake despite this he is still not been urinating much. He has a history of kidney stones in the past he is concerned he may have another kidney stone. He denies any fever sweats or chills he also comments he feels like his prostate is swollen. Associated symptoms: Deny dysuria Related Data Home Medications Medication Instructions Recorded Confirmed allopurinol 300 mg tablet 300 mg PO DAILY 12/28/21 08/26/24 amlodipine 10 mg tablet 10 mg PO DAILY 12/28/21 08/26/24 lisinopril 40 mg tablet 40 mg PO DAILY 12/28/21 08/26/24 sildenafil 50 mg tablet (Viagra) 50 mg PO DAILY PRN Sexual Activity 12/28/21 08/26/24 colchicine 0.6 mg capsule 0.6 mg PO BID 08/26/24 08/26/24 Previous Rx's Medication Instructions Recorded hydrocodone 5 mg-acetaminophen 325 1 tab PO Q6H PRN pain #12 tabs 05/22/21 mg tablet ciprofloxacin HCl 500 mg tablet 500 mg PO BID #20 tabs 08/26/24 (Cipro) tamsulosin 0.4 mg capsule 0.4 mg PO .QHS #30 caps 08/26/24 Allergies Allergy/AdvReac Type Severity Reaction Status Date / Time No Known Allergies Allergy Verified 08/26/24 07:28 Review of Systems Const: Denies: fever(s) or chills Card: Denies: chest pain Resp: Denies: dyspnea GI: Denies: abdominal pain : Denies: dysuria, urinary frequency or urinary urgency Musc: Denies: neck pain or back pain Skin/Breast: Denies: rash PFSH ED PFSH: Medical History Aortic root dilation Family History Father CAD (coronary artery disease) Denies family history of Diabetes Cancer Hypertension Stroke Social History Smoking and tobacco/nicotine status: former use of tobacco/nicotine Quit status (tobacco/nicotine): has quit using Year quit tobacco: 2017 Former quit date comment: Smoked 1 pack per day 30 years Alcohol intake: current Alcohol intake frequency: 0-2 Drinks per Day Substance/Drug Use: never Lives independently: Yes Household members: spouse Marital status: Number of children: 2 service: Yes Current occupational status: retired Pets and animals: Yes Pets & animals: cat(s) and dog(s) Physical Exam Const: GENERAL APPEARANCE: cooperative ORIENTATION/CONSCIOUSNESS: Yes awake, Yes oriented to person, Yes oriented to place and Yes oriented to time HENMT: COMMON NORMALS: normocephalic, atraumatic and hearing grossly normal bilaterally HEAD & SCALP: normocephalic and atraumatic Resp: COMMON NORMALS: normal respiratory effort, No retractions, No use of accessory muscles and clear to auscultation bilaterally AUSCULTATION: clear to auscultation bilaterally Cardio: COMMON NORMALS: regular rate, regular rhythm and No murmurs present (Cardio) RATE: regular rate RHYTHM: regular rhythm GI: COMMON NORMALS: Soft to palpation and No hepatosplenomegaly present AUSCULTATION: Yes normoactive bowel sounds PALPATION: Yes Soft to palpation, No Tenderness to palpation present (GI), No Guarding due to palpation present (GI) and Yes No hepatosplenomegaly present : BLADDER/KIDNEY EXAM: Yes CVA tenderness Back/Pelvis: GENERAL BACK: Yes CVA tenderness CVA tenderness: bilateral (Left greater than right) Extremity: COMMON NORMALS: normal to inspection, capillary refill normal, no clubbing, cyanosis or edema, no calf tenderness and no pedal edema Neuro: SENSORIUM/ORIENTATION: Yes oriented to person, Yes oriented to place and Yes oriented to time Skin: COMMON NORMALS: no rashes or lesions noted GENERAL SKIN EXAM: no rashes or lesions noted Course Vital Signs: Vital signs: Vital Signs Temperature 98.1 F 08/26/24 07:21 Pulse Rate 74 08/26/24 09:43 Respiratory Rate 17 08/26/24 09:43 Blood Pressure 123/75 08/26/24 09:43 Pulse Oximetry 98 08/26/24 09:43 Oxygen Delivery Me thod Room Air 08/26/24 07:21 MDM - Male Medical Decision Making CT does not show signs of urinary retention and nephrolithiasis who believes patient has a pyelonephritis possibly prostatitis we will start him on ciprofloxacin add tamsulosin and have him follow-up with his primary care doctor if not improving Medical Records I reviewed the patient's medical records. Lab Data I reviewed the patient's lab results. 08/26/24 08:05 08/26/24 08:05 Laboratory Results WBC 10.33 10^3/uL (3.29-11.43) 08/26/24 08:05 RBC 5.05 10^6/uL (3.85-5.65) 08/26/24 08:05 Hgb 15.60 g/dL (11.27-16.99) 08/26/24 08:05 Hct 47.4 % (37-53) 08/26/24 08:05 MCV 93.9 fl (82-101) 08/26/24 08:05 MCH 30.9 pg (27-33) 08/26/24 08:05 MCHC 32.9 g/dL (30-55) 08/26/24 08:05 RDW 13.3 % (12.1-15.1) 08/26/24 08:05 Plt Count 299 10^3/cmm (157-399) 08/26/24 08:05 MPV 10.5 fL (7.4-10.4) H 08/26/24 08:05 Neut % (Auto) 58.8 % 08/26/24 08:05 Lymph % (Auto) 31.6 % 08/26/24 08:05 [place] % (Auto) 6.3 % 08/26/24 08:05 Eos % (Auto) 2.3 % 08/26/24 08:05 Baso % (Auto) 0.7 % 08/26/24 08:05 Neut # (Auto) 6.08 10^3/uL (1.8-7.7) 08/26/24 08:05 Lymph # (Auto) 3.3 10^3/uL (0.8-4.8) 08/26/24 08:05 [place] # (Auto) 0.7 10^3/uL (0.2-0.9) 08/26/24 08:05 Eos # (Auto) 0.2 10^3/uL (0.0-0.8) 08/26/24 08:05 Baso # (Auto) 0.1 10^3/uL (0.0-0.1) 08/26/24 08:05 Nucleated RBC % (auto) 0 % 08/26/24 08:05 Nucleated RBCs # 0.0 /100WBC 08/26/24 08:05 Sodium 135 mmol/L (136-145) L 08/26/24 08:05 Potassium 3.5 mmol/L (3.5-5.1) 08/26/24 08:05 Chloride 97 mmol/L (98-107) L 08/26/24 08:05 Carbon Dioxide 27 mmol/L (22-29) 08/26/24 08:05 Anion Gap 14.5 (5-19) 08/26/24 08:05 BUN 17 mg/dL (8-23) 08/26/24 08:05 Creatinine 0.9 mg/dL (0.7-1.2) 08/26/24 08:05 GFR Calculation 83.4 mL/min (90-130) L 08/26/24 08:05 Glucose 124 mg/dL (65-115) H 08/26/24 08:05 Calculated Osmolality 283 mOsm/kg (285-295) L 08/26/24 08:05 Calcium 9.6 mg/dL (8.5-10.5) 08/26/24 08:05 Total Bilirubin 0.6 mg/dL (0.15-1.2) 08/26/24 08:05 AST 22 U/L (0-40) 08/26/24 08:05 ALT 29 U/L (0-41) 08/26/24 08:05 Alkaline Phosphatase 87 U/L (40-130) 08/26/24 08:05 Total Protein 7.6 g/dL (6.6-8.7) 08/26/24 08:05 Albumin 4.2 g/dL (3.5-5.2) 08/26/24 08:05 Globulin 3.4 g/dL (1.3-4.6) 08/26/24 08:05 Urine Color Yellow (Yellow) 08/26/24 08:06 Urine Appearance Turbid (CLEAR) A 08/26/24 08:06 Urine pH 5.5 (5-7) 08/26/24 08:06 Ur Specific [place] 1.018 (1.005-1.030) 08/26/24 08:06 Urine Protein 3+ (Negative) A 08/26/24 08:06 Urine Glucose (UA) Negative (Normal) 08/26/24 08:06 Urine Ketones Negative (Negative) 08/26/24 08:06 Urine Blood 2+ (Negative) A 08/26/24 08:06 Urine Nitrate Negative (Negative) 08/26/24 08:06 Urine Bilirubin Negative (Negative) 08/26/24 08:06 Urine Urobilinogen 0.2 mg/dL (Negative) 08/26/24 08:06 Ur Leukocyte Esterase 3+ (Negative) A 08/26/24 08:06 Urine RBC 0-2 /hpf (0-2) 08/26/24 08:06 Urine WBC >100 /hpf (0-5) H 08/26/24 08:06 Ur Squamous Epith Cells 0-5 /hpf (0-5) 08/26/24 08:06 Amorphous Sediment Not Reportable 08/26/24 08:06 Urine Bacteria 4+ /hpf (NONE) H 08/26/24 08:06 Hyaline Casts 1.21 /lpf 08/26/24 08:06 All radiology interpretation(s) finalized by discharge Discharge Plan Discharge Patient Disposition: Home Clinical Impression: Cystitis, Acute prostatitis Condition: Stable Prescriptions: New tamsulosin 0.4 mg capsule 0.4 mg PO .QHS Qty: 30 0RF ciprofloxacin HCl [Cipro] 500 mg tablet 500 mg PO BID Qty: 20 0RF No Action lisinopril 40 mg tablet 40 mg PO DAILY amlodipine 10 mg tablet 10 mg PO DAILY allopurinol 300 mg tablet 300 mg PO DAILY sildenafil [Viagra] 50 mg tablet 50 mg PO DAILY PRN (Reason: Sexual Activity) Rx Instructions: administer 30 minutes to 4 hours before activity hydrocodone-acetaminophen 5-325 mg tablet 1 tab PO Q6H PRN (Reason: pain) Qty: 12 0RF colchicine 0.6 mg Capsule 0.6 mg PO BID Discharge Orders: Discharge ED (Routine); Ordered 08/26/24 Ordered By: Harvey Zavala Referrals: Leticia Reed MD [Primary Care Provider] - Discharge Diet: Usual diet Discharge Activity: Increase activity as tolerated Patient Instructions: Opioid Safety, Pain Management Activity Restrictions/Additional Instructions: Thank you for choosing [facility] for your healthcare needs today. It is very important that you follow up as instructed or that you return to the Emergency Department should you have concerns or if your condition changes or worsens in any way. You were seen today with complaints of difficulty urinating. Urine shows signs of a bladder infection. Also given your description of symptoms suspect she has a mild prostatitis as well. Will start on tamsulosin 4.4 mg at at bedtime. Initially you were given a dose of antibiotics emergency room he should also start Cipro 500 mg 1 pill twice a day for 10 days follow-up with your primary care doctor return if you have worsening difficulty or unable to urinate. Coding Level of Care Code ED Senior Reservations Agent for Ana Rosa Gifford
[2024-08-26 08:30] LABS: Bilirubin Urine Negative (Negative); Blood Urine 2+ (Negative); Glucose Urine UA Negative (Normal); Ketones Urine Negative (Negative); Leukocyte Esterase Urine 3+ (Negative); Nitrate Urine Negative (Negative); Protein Urine 3+ (Negative); Specific Gravity, Urine 1.018 (1.005-1.030); Urine Appearance Turbid (CLEAR); Urine Color Yellow (Yellow); Urobilinogen Urine 0.2 mg/dL (Negative); pH Urine 5.5 (5-7)
[2024-08-26 08:30] LABS: Basophils # 0.1 10^3/uL (0.0-0.1); Basophils % 0.7 %; Eosinophils # 0.2 10^3/uL (0.0-0.8); Eosinophils % 2.3 %; Hematocrit 47.4 % (37-53); Lymphocytes # 3.3 10^3/uL (0.8-4.8); Lymphocytes % 31.6 %; Mean Corpuscular HGB Conc 32.9 g/dL (30-55); Mean Corpuscular Hemoglobin 30.9 pg (27-33); Mean Corpuscular Volume 93.9 fl (82-101); Mean Platelet Volume 10.5 fL (7.4-10.4); Monocytes # 0.7 10^3/uL (0.2-0.9); Monocytes % 6.3 %; Neutrophils # 6.08 10^3/uL (1.8-7.7); Neutrophils % 58.8 %; Nucleated Red Blood Cells % 0 %; Platelet Count 299 10^3/cmm (157-399); Red Blood Count 5.05 10^6/uL (3.85-5.65); Red Cell Distribution Width 13.3 % (12.1-15.1); White Blood Count 10.33 10^3/uL (3.29-11.43)
[2024-08-26 08:33] LABS: Add Urine Microscopic? YES; Bacteria Urine 4+ /hpf; Hyaline Casts Urine 1.21 /lpf; RBC Urine 0-2 /hpf (0-2); Squamous Epithelial Cell Urine 0-5 /hpf (0-5); WBC Urine >100 /hpf (0-5)
[2024-08-26 08:52] LABS: UA Slide Review UA Slide Review Perf
[2024-08-26 08:53] LABS: Add Urine Culture? Yes
[2024-08-26 08:55] LABS: Alanine Aminotransferase 29 U/L (0-41); Albumin Level 4.2 g/dL (3.5-5.2); Alkaline Phosphatase 87 U/L (40-130); Anion Gap 14.5 (5-19); Aspartate Amino Transferase 22 U/L (0-40); Blood Urea Nitrogen 17 mg/dL (8-23); Calcium 9.6 mg/dL (8.5-10.5); Carbon Dioxide 27 mmol/L (22-29); Chloride 97 mmol/L (98-107); Creatinine Clr Calc Pharmacy 115.6106; Globulin 3.4 g/dL (1.3-4.6); Glomerular Filtration Rate 83.4 mL/min (90-130); Glucose 124 mg/dL (65-115); Osmolality Calculated 283 mOsm/kg (285-295); Potassium 3.5 mmol/L (3.5-5.1); Sodium 135 mmol/L (136-145); Total Bilirubin 0.6 mg/dL (0.15-1.2); Total Protein 7.6 g/dL (6.6-8.7)
[2024-08-26] MEDS: cefTRIAXone 1,000 mg SDV 1000 MG IVP (09:29)
[2024-08-26 09:43] VITALS: BP 123/75; PULSE 74; RESP 17; O2SAT 98
== END 2024-08-26 09:48 | disposition home or self-care (01) ==
PROVIDERS: Emergency Provider Family Medicine; PCP Family Medicine
DX: N41.0 Acute prostatitis (principal); N30.90 Cystitis, unspecified without hematuria; Z87.891 Personal history of nicotine dependence
CPT/HCPCS: 36415; 80053; 81001; 85025; 87086; 96374; 99284; J0696

== ENCOUNTER 2025-06-26 14:32 | Outpatient (CLI) | payer OTHER, SELFPAY ==
--- NOTE | 2025-06-26 14:36 | CT_ITS ---
WS: [id number] LDCT LUNG CANCER SCREENING TECHNIQUE: Noncontrast CT of the chest with coronal and sagittal reformatted images. CLINICAL INFORMATION: HX OF TOBACCO USE COMPARISON: None. DLP: 113.50 mGy.cm DIvol: Mean CTDIvol: 2.70 (mGy) All CT scans at use at least one of these dose optimization techniques: automated exposure control; mA and/or kV adjustment per patient size (includes targeted exams where dose is matched to clinical indication); or iterative reconstruction. FINDINGS: 3 mm noncalcified nodule RIGHT upper lobe. No suspicious pulmonary parenchymal abnormalities. Multinodular goiter. Stable aneurysmal ascending thoracic aorta measuring 5.1 cm. Coronary calcification. No mediastinal or hilar lymphadenopathy. No axillary lymphadenopathy. Adrenal glands are normal. Cholelithiasis. Fatty liver. Mild thoracic kyphosis. CT/CT lung screening [id number] IMPRESSION: LUNG-RADS: 2-Benign Appearance or Behavior FOLLOW UP: 12 Month: Continue annual screening with LDCT
== END 2025-06-26 14:33 | disposition home or self-care (01) ==
LOC: RAD 14:33
PROVIDERS: PCP Family Medicine; Visit Provider Nurse Practitioner
DX: Z12.2 Encounter for screening for malignant neoplasm of respiratory organs (principal); Z87.891 Personal history of nicotine dependence; R91.1 Solitary pulmonary nodule; E04.2 Nontoxic multinodular goiter; K80.20 Calculus of gallbladder without cholecystitis without obstruction; K76.0 Fatty (change of) liver, not elsewhere classified; M40.204 Unspecified kyphosis, thoracic region; Z12.11 Encounter for screening for malignant neoplasm of colon
CPT/HCPCS: 71271; 99204

== ENCOUNTER 2025-07-16 05:57 | Day surgery (SDC) | payer OTHER, SELFPAY ==
[2025-07-16 06:16] VITALS: BP 152/121; PULSE 77; RESP 18; TEMP 36.2; O2SAT 93; BMI 31.5
--- NOTE | 2025-07-16 06:58 | ANES.PREANE2 ---
Pre-Anesthetic Assessment Height/Weight: Height 2.01 m Weight 127.006 kg Temp Pulse Resp BP Pulse Ox O2 Del Method 97.2 F L 77 18 152/121 93 Room Air 07/16/25 06:16 07/16/25 06:16 07/16/25 06:16 07/16/25 06:16 07/16/25 06:16 07/16/25 06:16 Preop Diagnosis: Screen Operation Date: 07/16/25 07:00 Proposed Procedures p Colonoscopy 25950 G0105 Z12.11(Not Applicable) - Srinath Urbina MD Familial anesthetic complications: none Was Beta [place] taken within 24 hours: N/A Was Clonidine taken within 24 hours: N/A Last intake: Intake Last Liquid Date 07/15/25 Last Liquid Time 20:00 Last Solid Date 07/14/25 Last Solid Time 20:00 Social Alcohol (occasional ) and Tobacco (occasional cigar) Exam alert, oriented x 3, clear to auscultation bilaterally and regular rate & rhythm shallow breathing Airway Cervical ROM: within normal limits Mallampati: Class II Dentition: full Pulmonary None reported CV/HEM Hypertension Ascending aortic aneurysm measuring 4.7-4.9 cm no recent changes, aymptomatic, follows Dr. Mcnamara last note written february 2024. None reported Hepatic None reported GI None reported Metabolic None reported Musc/skel None reported Neuropsych None reported Anesthetic Plan ASA status: 3 Anesthesia: MAC Risk of > 500 ml blood loss (7ml/kg in children): No Medications/Allergies Home Medications ?Medication ?Instructions ?Recorded ?Confirmed ?Last Taken ?Type allopurinol 300 mg tablet 300 mg PO DAILY 12/28/21 07/10/25 07/09/25 History amlodipine 10 mg tablet 10 mg PO DAILY 12/28/21 07/10/25 07/09/25 History lisinopril 40 mg tablet 40 mg PO DAILY 12/28/21 07/10/25 07/09/25 History sildenafil 50 mg tablet (Viagra) 50 mg PO DAILY PRN Sexual Activity 12/28/21 07/10/25 Unknown History colchicine 0.6 mg capsule 0.6 mg PO BID 08/26/24 07/10/25 07/09/25 History (Mitigare) Allergies Allergy/AdvReac Type Severity Reaction Status Date / Time No Known Allergies Allergy Verified 07/10/25 08:39 Current Medications Generic Name Dose Route Start Last Admin Trade Name Freq PRN Reason Stop Dose Admin Sodium Chloride 1,000 mls @ 15 mls/hr 07/16/25 05:57 07/16/25 06:29 Sodium Chloride 0.9% IV 07/17/25 05:56 15 mls/hr .Q24H PRN Administration COLONOSCOPY FLUIDS PFSH Anesthesia Medical History (Updated 06/26/25 @ 16:36 by Srinath Urbina MD) Aortic root dilation Family History Father CAD (coronary artery disease) Denies family history of Diabetes Cancer Hypertension Stroke Social History Smoking and tobacco/nicotine status: never used tobacco/nicotine Quit status (tobacco/nicotine): has quit using Year quit tobacco: 2017 Former quit date comment: Smoked 1 pack per day 30 years Alcohol intake: current Alcohol intake frequency: 0-2 Drinks per Day Substance/Drug Use: never Lives independently: Yes Household members: spouse Marital status: Number of children: 2 service: Yes Current occupational status: retired Pets and animals: Yes Pets & animals: cat(s) and dog(s) Data Anesthesia Cardiac Studies: Echocardiogram 10/06/23 Echocardiogram Ultrasound 01/21/21
--- NOTE | 2025-07-16 07:06 | W.PM.OPSUD ---
Surgery/Procedure H&P Update DATE OF PROCEDURE: July 16, 2025 DATE H&P PERFORMED: 06/26/25 H&P UPDATE INFORMATION: I have reviewed H&P completed within last 30 days, I have examined patient prior to procedure and No changes to prior documentation PREOP DIAGNOSIS: Screen PLANNED PROCEDURE: Operation Date: 07/16/25 07:00 Proposed Procedures p Colonoscopy 99677 G0105 Z12.11(Not Applicable) - Srinath Urbina MD
[2025-07-16 07:36] VITALS: BP 142/75; PULSE 61; RESP 18; TEMP 36.4; O2SAT 92
--- NOTE | 2025-07-16 08:09 | ANE.PACU2 ---
Inpatient post-anesthesia follow up: Airway intact: Yes Vital signs: Temperature 97.5 F Pulse Rate 61 Respiratory Rate 18 Blood Pressure 142/75 Pulse Oximetry 92 Oxygen Delivery Me thod Room Air Oxygen Flow Rate Fraction of Inspir ed Oxygen Hydration adequate: Yes Nausea and vomiting: No Pain level: 1 Mental status: Baseline
== END 2025-07-16 08:09 | disposition home or self-care (01) ==
PROVIDERS: PCP Family Medicine; Visit Provider Student in an Organized Health Care Education/Training Program
PROC: 0DJD8ZZ Inspection of Lower Intestinal Tract, Via Natural or Artificial Opening Endoscopic (ICD-10-PCS; CPT 45378; principal; 2025-07-16 07:00)
DX: Z12.11 Encounter for screening for malignant neoplasm of colon (principal); K57.30 Diverticulosis of large intestine without perforation or abscess without bleeding; D12.2 Benign neoplasm of ascending colon; D12.4 Benign neoplasm of descending colon; D12.5 Benign neoplasm of sigmoid colon; I10 Essential (primary) hypertension; Z87.891 Personal history of nicotine dependence
CPT/HCPCS: 45380; 45385; 88305; J2704; J7030; J9999

== ENCOUNTER → 2025-08-07 07:48 | Outpatient (BNVA) | payer OTHER, SELFPAY | PROVIDERS: PCP Family Medicine; Visit Provider Nurse Practitioner Family | DX: L23.7 Allergic contact dermatitis due to plants, except food (principal); L71.8 Other rosacea; L57.8 Other skin changes due to chronic exposure to nonionizing radiation; L81.4 Other melanin hyperpigmentation; D18.01 Hemangioma of skin and subcutaneous tissue; Z08 Encounter for follow-up examination after completed treatment for malignant neoplasm; Z85.820 Personal history of malignant melanoma of skin; D48.5 Neoplasm of uncertain behavior of skin; L57.0 Actinic keratosis | CPT/HCPCS: 11102; 17000; 99204 ==